=== PATIENT | male | born 1950 | race Caucasian/White ===

== ENCOUNTER 2019-08-10 21:10 | Emergency (ER) | payer OTHER ==
[2019-08-10] MEDS ORDERED: Sodium Chloride 0.9% 1,000 ML IV ONE (21:36)
[2019-08-10] MEDS ORDERED: Sodium Chloride 0.9% 10 ML Syringe FLUSH PRN (21:37)
[2019-08-10] MEDS ORDERED: Morphine 4 MG/ML Syringe IVPUSH ONE (21:38)
[2019-08-10] MEDS ORDERED: Ketorolac 15 MG/ML SDV IVPUSH ONE (21:38)
[2019-08-10 22:13] LABS: CHLORIDE,CL 103 mmol/L (98-107); SODIUM,NA 143 mmol/L (136-145)
[2019-08-10 22:16] LABS: ANION GAP 14.4 mmol/L (10-20)
--- NOTE | 2019-08-10 23:36 | EDM.PDOC ---
ED HPI GENERAL MEDICAL PROBLEM - General Chief Complaint: Abdominal Pain Stated Complaint: PAIN IN LEFT SIDE OF ABDOMEN Time Seen by Provider: 08/10/19 21:34 Source of Information: Reports: Patient History Limitations: Reports: No Limitations - History of Present Illness INITIAL COMMENTS - FREE TEXT/NARRATIVE: Pt. presents to ER with complaints of LUQ abdominal pain. He states that he has had problems with constipation lately and has not had a BM for 3 days. He states that he has also noticed blood in his urine. Denies any fever or chills. No chest pain or shortness of breath. Denies any nausea, vomiting, or bloody stools. He states that he has a history of kidney stones and last had one several years ago. He states that he had a CT scan for lung nodules that was performed at that [facility] this past year and was positive for several small kidney stones. Pt. initially stated that he was not on any medications other than "something for blood pressure" and denied any past medical history but in reviewing his EPIC chart, he was noted to be on numerous medications for COPD, HTN, and ED. Onset Date: 08/07/19 Location: Reports: Abdomen Quality: Reports: Ache, Sharp Severity: Severe - Related Data Allergies Allergy/AdvReac Type Severity Reaction Status Date / Time enalaprilat [From Vasotec] Allergy Other Verified 08/10/19 22:10 Home Meds: Home Meds Albuterol Sulfate [Albuterol Sulfate Hfa] 90 mcg IH Q6H PRN 08/10/19 [History] Ascorbic Acid [Vitamin C] 250 mg PO DAILY 08/10/19 [History] Aspirin 81 mg PO DAILY 08/10/19 [History] Budesonide/Formoterol [Symbicort 160-4.5 MCG] 12 puff INH BID 08/10/19 [History] Carvedilol [Coreg] 25 mg PO BID 08/10/19 [History] Cholecalciferol (Vitamin D3) [Vitamin D3] 1,000 unit PO DAILY 08/10/19 [History] Cyanocobalamin (Vitamin B-12) [Vitamin B-12] 50 mcg PO DAILY 08/10/19 [History] Ibuprofen 800 mg PO TID PRN 08/10/19 [History] Tiotropium [Spiriva HandiHaler] 18 mcg INH DAILY 08/10/19 [History] hydroCHLOROthiazide [Hydrochlorothiazide] 50 mg PO DAILY 08/10/19 [History] Past Medical History Cardiovascular History: Reports: Hypertension Respiratory History: Reports: COPD Social & Family History - Tobacco Use Smoking Status *Q: Never Smoker ED ROS GENERAL - Review of Systems Review Of Systems: See Below Constitutional: Reports: No Symptoms HEENT: Reports: No Symptoms Respiratory: Reports: No Symptoms Cardiovascular: Reports: No Symptoms Endocrine: Reports: No Symptoms GI/Abdominal: Reports: Abdominal Pain, Constipation. Denies: Anorexia, Black Stool, Bloody Stool, Diarrhea, Decreased Appetite, Difficulty Swallowing, Distension, Hematemesis, Hematochezia, Melena, Nausea, Vomiting : Reports: Hematuria Musculoskeletal: Reports: No Symptoms Skin: Reports: No Symptoms Neurological: Reports: No Symptoms Psychiatric: Reports: No Symptoms Hematologic/Lymphatic: Reports: No Symptoms Immunologic: Reports: No Symptoms ED EXAM, GENERAL - Physical Exam Exam: See Below Exam Limited By: No Limitations General Appearance: Alert, WD/WN, No Apparent Distress Head: Atraumatic, Normocephalic Respiratory/Chest: No Respiratory Distress, Lungs Clear, Normal Breath Sounds, No Accessory Muscle Use, Chest Non-Tender Cardiovascular: Normal Peripheral Pulses, Regular Rate, Rhythm, No Edema, No Gallop, No JVD, No Murmur, No Rub Peripheral Pulses: 4+: Radial (L) GI/Abdominal: Normal Bowel Sounds, Soft, No Organomegaly, No Distention, No Mass , Tender (Male) Exam: Deferred Rectal (Males) Exam: Deferred Back Exam: Normal Inspection, Full Range of Motion Extremities: Normal Inspection, Normal Range of Motion, Non-Tender, No Pedal Edema, Normal Capillary Refill Neurological: Alert, Oriented, CN II-XII Intact, Normal Cognition, Normal Gait, Normal Reflexes, No Motor/Sensory Deficits Psychiatric: Normal Affect, Normal Mood Skin Exam: Warm, Dry, Intact, Normal Color, No Rash Course - Vital Signs Last Recorded V/S: Last Vital Signs Temp 35.7 C 08/10/19 21:31 Pulse 56 L 08/10/19 21:31 Resp 18 08/10/19 21:31 BP 153/88 H 08/10/19 21:31 Pulse Ox 97 08/10/19 21:31 - Orders/Labs/Meds Orders: Active Orders 24 hr Category Date Time Status UA W/MICROSCOPIC [URIN] Stat Lab 08/10/19 21:37 Ordered Peripheral IV Insertion Adult [OM.PC] Routine Oth 08/10/19 21:37 Ordered Labs: Laboratory Tests 08/10/19 08/10/19 08/10/19 Range/Units 21:44 21:44 21:44 WBC 5.8 (4.0-10.0) x10^3/uL RBC 4.56 (4.5-6.0) x10^6/uL Hgb 13.7 L (14.0-18.0) g/dL Hct 38.6 L (40.0-52.0) % MCV 84.6 (78.0-93.0) fL MCH 30.0 (26.0-32.0) pg MCHC 35.5 (32.0-36.0) g/dL RDW Coeff of Cory 12.6 (10.0-15.0) % Plt Count 142 (130-400) x10^3/uL Add Manual Diff Yes Neutrophils % (Manual) 39 L (50-80) % Lymphocytes % (Manual) 41 (25-50) % Monocytes % (Manual) 18 H (2-11) % Eosinophils % (Manual) 1 (0-4) % Basophils % (Manual) 1 (0-1) % Platelet Estimate Adequate Giant Platelets Few H Anisocytosis 1+ slight H PT 11.7 (10.0-12.8) SEC INR 1.0 L (2.0-3.5) Sodium 143 (136-145) mmol/L Potassium 3.4 L (3.5-5.1) mmol/L Chloride 103 (98-107) mmol/L Carbon Dioxide 29 (21-32) mmol/L Anion Gap 14.4 (10-20) mmol/L BUN 24 H (7-18) mg/dL Creatinine 1.4 H (0.70-1.30) mg/dL Est Cr Clr Drug Dosing TNP Estimated GFR (MDRD) 50 Glucose 127 H (74-106) mg/dL Calcium 9.0 (8.5-10.1) mg/dL Corrected Calcium 9.16 (8.5-10.1) mg/dL Magnesium 1.9 (1.8-2.4) mg/dL Total Bilirubin 0.3 (0.2-1.0) mg/dL AST 14 L (15-37) U/L ALT 21 (16-63) U/L Alkaline Phosphatase 62 (46-116) U/L C-Reactive Protein 0.3 (<=0.9) mg/dL Total Protein 7.5 (6.4-8.2) g/dL Albumin 3.8 (3.4-5.0) g/dL Globulin 3.7 Albumin/Globulin Ratio 1.03 Meds: Medications Discontinued Medications Generic Name Dose Route Start Last Admin Trade Name Freq PRN Reason Stop Dose Admin Sodium Chloride 1,000 mls @ 1,000 mls/hr 08/10/19 21:36 08/10/19 21:43 Normal Saline IV 08/10/19 22:35 1,000 mls/hr .BOLUS ONE Administration Ketorolac Tromethamine 15 mg 08/10/19 21:38 08/10/19 21:44 Toradol IVPUSH 08/10/19 21:39 15 mg ONETIME ONE Administration Morphine Sulfate 4 mg 08/10/19 21:38 08/10/19 21:45 Morphine IVPUSH 08/10/19 21:39 4 mg ONETIME ONE Administration Sodium Chloride 10 ml 08/10/19 21:37 08/10/19 22:04 Saline Flush FLUSH 10 ml ASDIRECTED PRN Administration Keep Vein Open - Re-Assessments/Exams Free Text/Narrative Re-Assessment/Exam: Pt. pain was controlled with IV morphine and toradol. He was unable to provide any urine for a urine sample and requested that he be discharged without being diagnosed. Departure - Departure Time of Disposition: 23:00 Disposition: Home, Self-Care 01 Clinical Impression: Abdominal pain - Discharge Information Instructions: Abdominal Pain, Adult, [id number] Referrals: PCP,None [Primary Care Provider] - Forms: ED Department Discharge Additional Instructions: Your workup was incomplete, so we are not 100% sure what was the cause of your pain. Follow-up if you are continuing have discomfort, fever, chills, or worsening discomfort. Sepsis Event Note - Evaluation Sepsis Screening Result: No Definite Risk - Focused Exam Vital Signs: Vital Signs Temp Pulse Resp BP Pulse Ox 08/10/19 21:31 35.7 C 56 L 18 153/88 H 97 Date Exam was Performed: 08/10/19 Time Exam was Performed: 23:29 - My Orders Last 24 Hours: My Active Orders 08/10/19 21:37 UA W/MICROSCOPIC [URIN] Stat Peripheral IV Insertion Adult [OM.PC] Routine - Assessment/Plan Last 24 Hours: My Active Orders 08/10/19 21:37 UA W/MICROSCOPIC [URIN] Stat Peripheral IV Insertion Adult [OM.PC] Routine Plan: Your workup was incomplete, so we are not 100% sure what was the cause of your pain. Follow-up if you are continuing have discomfort, fever, chills, or worsening discomfort.
== END 2019-08-10 22:38 | disposition home or self-care (01) ==
LOC: VM.ED 21:10
DX: R10.12 Left upper quadrant pain (principal); I10 Essential (primary) hypertension; J44.9 Chronic obstructive pulmonary disease, unspecified; Z79.51 Long term (current) use of inhaled steroids; Z79.82 Long term (current) use of aspirin; Z79.899 Other long term (current) drug therapy; Z88.8 Allergy status to other drugs, medicaments and biological substances
CPT/HCPCS: 80053; 83735; 85025; 85610; 86140; 96361; 96374; 96375; 99283-GF; 99284-25; J1885; J2270; J7030